=== PATIENT | female | born 1970 | race Caucasian/White ===

== ENCOUNTER → 2023-07-24 | Outpatient (CLI) | payer BC ==
[~2023-07-24] MED LIST: BIAXIN500 MG PO; DICLOFENAC SODI75 M7 PO; LOMOTIL 0.025 M1 TA1 PO; MAXALT10 MG PO; NASONEX0.05 MG/AC NAS; NORTRIPTYLINE25 MG PO; PREDNISONE10 MG PO; Synthroid,Levo50 MCG PO; TOPAMAX100 MG PO; VIBRAMYCIN100 MG PO; XYZAL5 MG PO; ZOFRAN ODT4 MG SL
== END | disposition home or self-care (01) ==
LOC: ORTHO 02:15 → LAB 02:15 → ORTHO 16:08
PROVIDERS: ATTEND Orthopaedic Surgery
DX: G43.909 Migraine, unspecified, not intractable, without status migrainosus (principal); M25.561 Pain in right knee

== ENCOUNTER → 2023-07-27 | Outpatient (CLI) | payer BC | END | disposition home or self-care (01) | LOC: LAB 03:28 | PROVIDERS: ATTEND Orthopaedic Surgery | DX: G43.909 Migraine, unspecified, not intractable, without status migrainosus (principal) ==